=== PATIENT | male | born 1985 | race Caucasian/White ===

== ENCOUNTER 2019-03-07 07:20 | Outpatient (CLI) | payer BC ==
--- NOTE | 2019-03-07 08:50 | ULT ---
US Abdominal History: Abdominal pain. Elevated LFTs Comparison: None. Findings: Real-time grayscale color evaluation of the abdomen was performed. Visualized portion of th e pancreas, aorta and IVC are unremarkable. Diffuse increased hepatic echotexture without mass. Liver measures 19.1 cm in length. Portal vein is patent with antegrade flow. Gallbladder wall that measures 4 mm, normal. No pericholecystic fluid. Right kidney measures 13.6 x 6.7 x 6.2 cm without mass, hydronephrosis, or abnormal calcifications. S pleen measures 11 cm in length. Left kidney measures 12.1 x 6.7 x 6 cm without mass, hydronephrosis, or abnormal calcifications. Sonographic Mayer's sign is negative. Impression: Diffuse increased hepatic echotexture suggesting steatosis. No acute gallbladder patholog y.
== END 2019-03-07 07:21 | disposition home or self-care (01) ==
LOC: SCSULT 07:20
PROVIDERS: ATTEND Family Medicine
DX: R74.8 Abnormal levels of other serum enzymes (principal); R93.2 Abnormal findings on diagnostic imaging of liver and biliary tract
CPT/HCPCS: 76700